=== PATIENT | male | born 1985 | race Caucasian/White ===

== ENCOUNTER 2021-12-25 14:27 | Emergency (ER) | payer SELFPAY ==
[~2021-12-25] VITALS: Ht 185.4 cm; Wt 145.1 kg
[2021-12-25 14:56] VITALS: BP 144/98
--- NOTE | 2021-12-25 15:03 | NUR ---
BIBS C/O LEFT ANKLE PAIN AND SWELLING S/P RUNNING AND TWISTED ANKLE YESTERDAY P/S 01/24. WILL CONTINUE TO MONITOR THE PATIENT.
--- NOTE | 2021-12-25 17:03 | NUR ---
Patient discharged to home in stable condition. Written and verbal after care instructions given. Patient verbalizes understanding of instruction.
== END 2021-12-25 17:03 | disposition home or self-care (01) ==
LOC: ER 15:30
DX: S93.402A Sprain of unspecified ligament of left ankle, initial encounter (principal); E11.9 Type 2 diabetes mellitus without complications; X50.1XXA Overexertion from prolonged static or awkward postures, initial encounter; Y93.02 Activity, running; Y92.89 Other specified places as the place of occurrence of the external cause; Y99.8 Other external cause status
CPT/HCPCS: 73610-TC; 73630-TC